=== PATIENT | male | born 1975 | race Two or more races ===

== ENCOUNTER 2017-02-09 11:34 | Emergency (ER) | payer OTHER ==
[~2017-02-09 11:34] MED LIST: FLEXERIL10 MG PO; NAPROSYN500 MG PO; NORCO 5/325 TAB1 TAB PO
[2017-02-09] MEDS ORDERED: NO HOME MEDICATION (11:46)
[2017-02-09] MEDS ORDERED: NORCO 5-325 TA1 EACH PO (12:19)
== END 2017-02-09 12:28 ==
LOC: EDMED 11:34
DX: S97.121A Crushing injury of right lesser toe(s), initial encounter (principal); F17.200 Nicotine dependence, unspecified, uncomplicated; W20.8XXA Other cause of strike by thrown, projected or falling object, initial encounter; Y92.69 Other specified industrial and construction area as the place of occurrence of the external cause; Y99.0 Civilian activity done for income or pay